=== PATIENT | female | born 1980 | race Caucasian/White ===

== ENCOUNTER → 2023-11-24 | Outpatient (CLI) | payer OTHER, SELFPAY ==
[2023-11-24 18:05] LABS: Ferritin 66 ng/mL (8-252); T4 Free Direct 1.04 ng/dL (0.76-1.46)
[2023-11-24 18:35] LABS: T3 Total - Triiodothyronine 1.32 ng/mL (0.6-1.81); Vitamin D,25 Hydroxy 55.6 ng/mL
[2023-11-27 03:07] LABS: Thyroid Peroxidase AB < 9 IU/mL (0-34); Zinc, Plasma or Serum 79 ug/dL (44-115)
[2023-11-28 13:07] LABS: Anti-Nuclear Antibody Test Negative (.)
[2023-11-29 11:07] LABS: Vitamin D 1,25-Dihydroxy 33.8 pg/mL (24.8-81.5)
== END | disposition home or self-care (01) ==
PROVIDERS: PCP Family Medicine; Referring Provider Physician Assistant Medical; Visit Provider Physician Assistant Medical
DX: L70.0 Acne vulgaris (principal); L72.0 Epidermal cyst; L65.9 Nonscarring hair loss, unspecified
CPT/HCPCS: 36415; 82306; 82652; 82728; 84439; 84480; 84630; 86038; 86376